=== PATIENT | female | born 1965 | race Caucasian/White ===

== ENCOUNTER 2017-01-03 16:23 | Emergency (ER) | payer MEDICARE, MEDICAID ==
[~2017-01-03] VITALS: Ht 167.6 cm; Wt 85.0 kg
[2017-01-03] MEDS ORDERED: NITR0.4T3 SL (16:27)
[2017-01-03 18:39] LABS: BASOPHILS % 0.6 % (0.0-2.0); EOSINOPHILS % 1.7 % (0.0-5.0); HEMATOCRIT. 38.1 % (36.0-48.0); HEMOGLOBIN. 12.6 g/dL (12.0-16.0); LYMPHOCYTES % 20.6 % (20.0-50.0); MEAN CORPUSCULAR HEMOGLOBIN 31.5 pg (28.0-32.0); MEAN CORPUSCULAR VOLUME 95.3 fL (81.0-99.0); MEAN PLATELET VOLUME 8.1 fl (7.4-10.4); MONOCYTES % 7.1 % (2.0-8.0); PLATELET 246 x1000/uL (130-400); RED BLOOD CELL COUNT 3.99 mill/uL (4.2-5.4); RED CELL DISTRIBUTION WIDTH 13.9 % (11.6-14.6)
[2017-01-03 18:41] LABS: CHLORIDE 102 mEq/L (98-107)
[2017-01-03 18:43] LABS: INR 1.1; PROTHROMBIN TIME 11.2 sec
[2017-01-03 18:46] LABS: CARBON DIOXIDE 25 mEq/L (21-32)
[2017-01-03 18:53] LABS: TROPONIN I < 0.02 ng/mL (0.00-0.04)
[2017-01-03 19:00] VITALS: BP 110/70
== END 2017-01-03 20:36 | disposition left against medical advice (07) ==
LOC: ER 16:23 → EDBEDREQTM 19:23 → EDBEDREQ 19:23 → SUPCPDRO 19:41 → CANRESERV 19:47 → ENRESERV 19:47 → ER 20:36 → CANRESERV 01-04 02:58 → ENRESERV 01-04 02:58 → CANBEDREQ 01-04 19:34
DX: R07.89 Other chest pain (principal); R55 Syncope and collapse; E86.0 Dehydration; T46.3X1A Poisoning by coronary vasodilators, accidental (unintentional), initial encounter; Y92.89 Other specified places as the place of occurrence of the external cause; R61 Generalized hyperhidrosis; E87.1 Hypo-osmolality and hyponatremia; R00.1 Bradycardia, unspecified; R11.10 Vomiting, unspecified; I51.9 Heart disease, unspecified; R01.1 Cardiac murmur, unspecified; Z88.0 Allergy status to penicillin
CPT/HCPCS: 36415; 71010; 80053; 83036; 83880; 84484; 85025; 85610; 93005; 99285